=== PATIENT | male | born 1960 | race Caucasian/White ===

== ENCOUNTER 2016-08-04 11:51 | Day surgery (SDC) | payer OTHER ==
[~2016-08-04] VITALS: Ht 167.6 cm; Wt 78.0 kg
[~2016-08-04 11:51] MED LIST: FLUT16SP24 NASAL; NAPR-688 PO
[2016-08-04 13:03] VITALS: Ht 167.6 cm; Wt 78.0 kg
[2016-08-04] MEDS ORDERED: METHOCARBAMOL (13:07)
[2016-08-04] MEDS ORDERED: VITAMIN D (13:07)
[2016-08-04] MEDS ORDERED: MELOXICAM (13:07)
[2016-08-04 13:22] VITALS: BP 121/70; PULSE 74; RESP 18
[2016-08-04] MEDS ORDERED: MIDAZOLAM 1 MG/ML 2 ML INJ ONE ×3 (14:34)
[2016-08-04] MEDS ORDERED: FENTAnyl 50 MCG/ML VIAL ONE (14:35)
--- NOTE | 2016-08-04 15:12 | GILP ---
DATE OF PROCEDURE: 08/04/2016 NAME OF PROCEDURE: Colonoscopy and biopsy. SURGEON: Sera Escalona MD PREOPERATIVE DIAGNOSIS: Screening colonoscopy. POSTOPERATIVE DIAGNOSES: 1. Redundant colon and cecum could not be reached. 2. Small transverse colon polyp was removed using the biopsy forceps. 3. Internal hemorrhoids. INDICATION FOR THE PROCEDURE: Mr. Eddi Gutierrez is a 56-year-old male patient who was scheduled for s creening colonoscopy. The procedure and possible complications were well explained to the patient, he understood and conse nted to the procedure. DESCRIPTION OF PROCEDURE: Under the influence of fentanyl and Versed, the colonoscope was carefully introduced in the rectum and under direct vision, it was advanced all the way to the full length of the scope. The patient had a very redundant sigmoid colon and the cecum could not be reached. The patient was noted to have a small transverse colon polyp and it was removed using the biopsy forcep s. He had internal hemorrhoids. He tolerated the procedure very well and there was no complication from the procedure. At the end o f the procedure, he was awake with stable vital signs and he was discharged home to the care of his family. IMPRESSION: 1. Redundant colon and cecum could not be reached. 2. Small transverse colon polyp was removed using the biopsy forceps. 3. Internal hemorrhoids. PLAN: The patient may need barium enema for the evaluation of the proximal part of the colon. Dictated By: SERA VOSS/KLEBER Conf#: [id number] DID#: [id number] CC: SERA ESCALONA MD;*EndCC*
== END 2016-08-04 17:25 | disposition home or self-care (01) ==
LOC: GIL 11:51
PROVIDERS: ATTEND Internal Medicine Gastroenterology
DX: Z12.11 Encounter for screening for malignant neoplasm of colon (principal); D12.3 Benign neoplasm of transverse colon; K64.8 Other hemorrhoids
CPT/HCPCS: 45380; 88305; J2250; J3010